=== PATIENT | male | born 1945 | race Caucasian/White ===

== ENCOUNTER 2016-09-05 20:43 | Inpatient (IN) | payer MEDICARE, OTHER ==
[~2016-09-05] VITALS: Ht 177.8 cm; Wt 64.4 kg
--- NOTE | 2016-09-05 21:20 | NUR ---
TO ROOM 5A FOR ER EVAL
[2016-09-05] MEDS ORDERED: TAMS0.4C34 (21:35)
[2016-09-05] MEDS ORDERED: ADAL40KI (21:35)
[2016-09-05] MEDS ORDERED: ENTE0.5T4 (21:35)
[2016-09-05] MEDS ORDERED: ACYC200C (21:35)
--- NOTE | 2016-09-05 22:38 | NUR ---
pt seen and examined by ermd. fed and given juice to drink.cooperative and calm.
--- NOTE | 2016-09-06 00:10 | NUR ---
no voiding yet.
--- NOTE | 2016-09-06 00:17 | NUR ---
ekg done, pt went to radiology for ct scan.
--- NOTE | 2016-09-06 00:40 | NUR ---
pt back to room , films seen by rimad, pt now medically cleared.
[2016-09-06] MEDS ORDERED: CLONAZEPAM 0.5 MG TABLET PO SCH (01:15)
[2016-09-06] MEDS ORDERED: MAG HYDROX/AL HYDROX/SIMETH 30 ML LIQUID UDC PO PRN (01:15)
[2016-09-06] MEDS ORDERED: TEMAZEPAM 7.5 MG CAPSULE PO PRN (01:15)
[2016-09-06] MEDS ORDERED: ACETAMINOPHEN 325 MG TABLET PO PRN (01:15)
[2016-09-06] MEDS ORDERED: MAGNESIUM HYDROXIDE 30 ML LIQUID UDC PO PRN (01:15)
--- NOTE | 2016-09-06 01:16 | NUR ---
report to fabiola nguyen. pt to mhu via wheelchair.
[2016-09-06 01:33] VITALS: BP 119/90
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
[2016-09-06] MEDS ORDERED: CLONAZEPAM 0.5 MG TABLET PO PRN (07:16)
[2016-09-06 07:30] VITALS: BP 128/82
[2016-09-06] MEDS: QUETIAPINE FUMARATE 25 MG TABLET PO SCH ×2 (12:35→20:00)
[2016-09-06 17:14] VITALS: BP 139/85
[2016-09-06] MEDS: MIRTAZAPINE 15 MG TABLET PO SCH (20:00)
--- NOTE | 2016-09-06 20:45 | NUR ---
PATIENT RECEIVED IN BED AWAKE. PATIENT ALERT/ORIENTED X2 WITH CONFUSION NOTED. PATIENT HAS FLAT AFFECT, ISOLATIVE WITHDRAWN REMAINS IN ROOM. PATIENT DENIES SI/AH/VH WILL CONTINUE TO MONITOR CHANGE OF BEHAVIOR. ENCOURAGED PATIENT TO EXPRESS FEELINGS AND CONCERNS, AND TO PARTICIPATE IN GROUP ACTIVITIES.PATIENT HAS POOR INSIGHT. NO AGGRESSIVE OR COMBATIVE BEHAVIOR NOTED WILL CONTINUE TO MONITOR AND REDIRECT NEEDED. PATIENT COMPLAINT WITH HS MEDICATION. PATIENT DENIES PAIN AT THIS TIME WILL CONTINUE TO MONITOR. BED IN LOWEST POSTION, BED LOCKED AND BED ALARM ON WHILE IN BED.
[2016-09-06 22:23] VITALS: BP 152/90
[2016-09-07 08:00] VITALS: BP 128/91
[2016-09-07] MEDS: QUETIAPINE FUMARATE 25 MG TABLET PO SCH ×2 (08:20→20:11)
--- NOTE | 2016-09-07 15:56 | NUR ---
Initial discharge instructions:Pt resides at home alone [[id number],[place], [place],[address];[phone]].Per pt,his girlfriend-Davy lives with him at times.Per pt,he would like to return home upon discharge.SW attempted to call pt's home,and requested a call back.CALEB will speak with pt and MD regarding appropriate discharge planning.SW will form a safe and proper discharge.
[2016-09-07 16:37] VITALS: BP 126/86
[2016-09-07 20:10] VITALS: BP 131/89
[2016-09-07] MEDS: MIRTAZAPINE 15 MG TABLET PO SCH (20:11)
[2016-09-07] MEDS: TAMSULOSIN HCL 0.4 MG CAP.SR.24H PO SCH (20:11)
--- NOTE | 2016-09-07 21:14 | NUR ---
PATIENT RECEIVED IN BED AWAKE. PATIENT ALERT/ORIENTED X2 WITH CONFUSION NOTED. PATIENT IS EASILY ANGRY. AND EASILY IRRITABLE. PATIENT HAS FLAT AFFECT, ISOLATIVE WITHDRAWN REMAINS IN ROOM. PATIENT DENIES SI/AH/VH WILL CONTINUE TO MONITOR CHANGE OF BEHAVIOR. ENCOURAGED PATIENT TO EXPRESS FEELINGS AND CONCERNS, AND TO PARTICIPATE IN GROUP ACTIVITIES.PATIENT HAS POOR INSIGHT. NO AGGRESSIVE OR COMBATIVE BEHAVIOR NOTED WILL CONTINUE TO MONITOR AND REDIRECT NEEDED. PATIENT COMPLAINT WITH HS MEDICATION. PATIENT DENIES PAIN AT THIS TIME WILL CONTINUE TO MONITOR. BED IN LOWEST POSITION, BED LOCKED AND BED ALARM ON WHILE IN BED.
[2016-09-08] MEDS: QUETIAPINE FUMARATE 25 MG TABLET PO SCH ×2 (08:21→20:21)
[2016-09-08 08:30] VITALS: BP 120/82
--- NOTE | 2016-09-08 11:16 | NUR ---
GPS: Nursing Notes: Lab. Draw Refusal: Patient refusing her lipid panel and hemoglobin A1C lab. draw today, loud and angry affect, resistant with nursing care, continue with treatment plan.
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
--- NOTE | 2016-09-08 13:34 | NUR ---
GPS: Nursing Notes: Clarification of Medications: Per Cat Cabrera SPECIALTY PLANT SUPERVISOR, trying to contact patient's , Saranya left message to call [facility], in order to get more information regarding patient's medication, continue to monitor patient, continue with treatment plan.
--- NOTE | 2016-09-08 13:38 | NUR ---
GPS: Nursing Notes: Regarding Medication Clarification: Informed Cat Cabrera SEAM STAY STITCHER that staff left message to patient's per her request in order to get more information regarding patient's medication. Also informed pharmacist Hamlet regarding staff trying to get in touch with patient in order to get more information regarding patient's medication per SEAM STAY STITCHER. PharmacistHamlet to call Cat Cabrera SEAM STAY STITCHER at extension [phone] in order to see exactly what she wants to do with his pending medication.
[2016-09-08 16:33] VITALS: BP 127/69
[2016-09-08] MEDS: TAMSULOSIN HCL 0.4 MG CAP.SR.24H PO SCH (20:22)
[2016-09-08] MEDS: MIRTAZAPINE 15 MG TABLET PO SCH (20:22)
[2016-09-09] MEDS: QUETIAPINE FUMARATE 25 MG TABLET PO SCH ×2 (08:24→20:09)
--- NOTE | 2016-09-09 11:55 | NUR ---
WEEKLY MEETING PO INTAKE 25-100% OF REGULAR DIET, IF PO INTAKE <50%, RECOMMEND BOOST ONCE BMI 19.7, NOTED 3 LBS WT LOSS IN 2 DAYS (MOST LIKELY MEASUREMENT ERROR) BM PRESENT, SKIN INTACT NO LABS AVAILABLE MEDS: REMERON , NO DNI NOTED NUTRITION DIAGNOSIS: SUBOPTIMAL PO INTAKE RELATED TO MENTAL STATUS EVIDENCED BY PO INTAKE 25-100% MONITOR PO INTAKE, WEIGHT FULL ASSESSMENT TO BE COMPLETED AT LATER DATE PER HOSPITAL POLICY Addendum: 09/09/16 at [address] Amended: Links added.
[2016-09-09 16:00] VITALS: BP 118/78
[2016-09-09] MEDS: TAMSULOSIN HCL 0.4 MG CAP.SR.24H PO SCH (20:09)
[2016-09-09] MEDS: MIRTAZAPINE 15 MG TABLET PO SCH (20:09)
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
[2016-09-10] MEDS: QUETIAPINE FUMARATE 25 MG TABLET PO SCH (08:54)
[2016-09-10 20:08] VITALS: BP 129/81
[2016-09-10] MEDS: MIRTAZAPINE 15 MG TABLET PO SCH (20:14)
[2016-09-10] MEDS: OLANZAPINE 5 MG TABLET PO SCH (20:14)
[2016-09-10] MEDS: TAMSULOSIN HCL 0.4 MG CAP.SR.24H PO SCH (20:14)
[2016-09-11 08:00] VITALS: BP 106/68
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
--- NOTE | 2016-09-11 15:21 | NUR ---
Water Plant Operator Spoke with the patient today to discuss discharge planning with him however the patient was not cooperative and very hostile. Today the patient has been yelling, screaming, demanding, slammed the door, and threw bottle at the wall because he wanted more water. When this interviewer asked the patient where he wants to go upon discharge, the patient remained laying flat on his back staring at the ceiling and would not answer. When the interviewer attempted to ask again, he stated "I want to go to [facility]." The interviewer also received a phone call from the patient's /girlfriend Saranya [ Home: ] stating that she does not want the patient to return home. She was very ambivalent and continued to state that she wants the patient to return home but that she doesn't want him to return home. Caleb spoke with Gisele at [facility] who confirmed that they will be providing transportation for the patient on 09/16/16 around 2:00 pmand take him back to his home. CALEB has called the patient's APS social media content specialist Miriam Springer and left her a voicemail informing her of the discharge plans. Addendum: 09/11/16 at 1544 by REESE ELLIS CALEB spoke with the patient's /girlfriend Saranya [ Home: ] and informed her that the patient will be discharged on Wednesday09/16/16 and she is aware and agreeable with the discharge plan. SHe is expectig the patient to return home that day. CALEB will contact Saranya and APS CALEB Pineda upon discharge to remind them of the DC plans.
[2016-09-11 16:00] VITALS: BP 129/82
[2016-09-11] MEDS: OLANZAPINE 5 MG TABLET PO SCH (20:38)
[2016-09-11] MEDS: TAMSULOSIN HCL 0.4 MG CAP.SR.24H PO SCH (20:39)
[2016-09-11] MEDS: MIRTAZAPINE 15 MG TABLET PO SCH (20:39)
[2016-09-11 21:24] VITALS: BP 153/95
[2016-09-12 20:00] VITALS: BP 120/74
[2016-09-12] MEDS: TAMSULOSIN HCL 0.4 MG CAP.SR.24H PO SCH (20:05)
[2016-09-12] MEDS: OLANZAPINE 5 MG TABLET PO SCH (20:05)
[2016-09-12] MEDS: MIRTAZAPINE 15 MG TABLET PO SCH (20:05)
--- NOTE | 2016-09-12 23:35 | NUR ---
GPS: Pt.awake at this time and unable to fall back to sleep. Quiet environment provided to facilitate sleep. Refused sleeping pill as ordered prn when offered. Will continue to monitor.
[2016-09-13 07:30] VITALS: BP 110/72
[2016-09-13] MEDS: OLANZAPINE 5 MG TABLET PO SCH ×2 (15:40→20:18)
[2016-09-13 15:41] VITALS: BP 111/70
[2016-09-13] MEDS: OLANZAPINE 2.5 MG TABLET PO SCH (15:45)
[2016-09-13 19:45] VITALS: BP 104/68
[2016-09-13] MEDS: TAMSULOSIN HCL 0.4 MG CAP.SR.24H PO SCH (20:18)
[2016-09-13] MEDS: MIRTAZAPINE 15 MG TABLET PO SCH (20:18)
[2016-09-14 07:30] VITALS: BP 105/56
[2016-09-14] MEDS: OLANZAPINE 2.5 MG TABLET PO SCH (08:27)
[2016-09-14 16:08] VITALS: BP 111/69
[2016-09-14] MEDS: TAMSULOSIN HCL 0.4 MG CAP.SR.24H PO SCH (20:13)
[2016-09-14] MEDS: MIRTAZAPINE 15 MG TABLET PO SCH (20:14)
[2016-09-14] MEDS: OLANZAPINE 5 MG TABLET PO SCH (20:15)
[2016-09-14 20:51] VITALS: BP 116/68
[2016-09-15 07:30] VITALS: BP 118/77
[2016-09-15] MEDS: OLANZAPINE 2.5 MG TABLET PO SCH (08:08)
[2016-09-15 17:02] VITALS: BP 105/66
[2016-09-15 20:00] VITALS: BP 104/66
[2016-09-15] MEDS: TAMSULOSIN HCL 0.4 MG CAP.SR.24H PO SCH (20:17)
[2016-09-15] MEDS: OLANZAPINE 5 MG TABLET PO SCH (20:19)
[2016-09-15] MEDS: MIRTAZAPINE 15 MG TABLET PO SCH (20:19)
[2016-09-16 07:30] VITALS: BP 123/71
--- NOTE | 2016-09-16 08:12 | NUR ---
DC Note: The patient will be discharged today back home [[address], [place], [address]; [phone]] via private transportation at 2:00 pm. Spoke with Gisele [facility] Liaison [phone] who stated the patient would be picked up today by the [facility]. Spoke with patients , Saranya [phone] who is aware and agreeable with discharge plans. Spoke with APS SW, Miriam [phone] who is aware and agreeable with discharge plans. Per Miriam, she will follow-up with the patient once he returns home on either 09/17/16 or Wednesday09/18/16. Miriam stated she will continue to follow-up with the patient and his , and offer additional services. Patient is aware and agreeable with discharge plans. Patient refused SNF placement, although it was offered [[facility]]. Patient was provided with a brief substance abuse intervention and was referred to [facility], [facility], and [facility]. Patient will follow-up with (Egg Factory Worker) [facility] [[address], [place] [address]; ] and was referred to [facility] [place] [facility] , [facility] , and the [facility] for mental health outpatient referrals.
[2016-09-16] MEDS: OLANZAPINE 2.5 MG TABLET PO SCH (08:31)
--- NOTE | 2016-09-16 13:03 | NUR ---
GPS/RN - Cat Del Cid NP, aware patient refused labs. patient cleared for discharge by medical and psychiatrist.
--- NOTE | 2016-09-16 14:15 | NUR ---
GPS/RN- Transportation here for patient from [facility], Josh Herrera. [phone]
--- NOTE | 2016-09-16 14:34 | NUR ---
WEEKLY MEETING: TOLERATING CURRENT DIET,(REGULAR DIET)EATING 75-100% OF MEALS SKIN INTACT, NO LABS AVAILABLE TO EVALUATE NO SIGNIFICANT WT CHANGES NOTICED ,BMI 20.4,CURRENT WT IS 142LB NO NUTRITION DIAGNOSIS AT THIS TIME NO INTERVENTION AT THIS TIME MONITOR:PO INTAKE,WT,NEW LABS Addendum: 09/16/16 at [address] Amended: Links added.
--- NOTE | 2016-09-16 15:00 | NUR ---
1345 DISCHARGE INSTRUCTIONS GIVEN TO PATIENT REGARDING MEDICATIONS TO CONTINUE AT HOME, PATIENT VERBALIZED UNDERSTANDING. PRESCRIPTIONS GIVEN AND BELONGINGS RETURNED AND SIGNED.1420 pATIENT PICKED UP BY [facility], PATIENT ALERT AND OX3, DENIES SUICIDAL IDEATION/ DENIES HOMICIDAL THOUGHTS. nO AVHALLUCINATIONS/ NO DELUSIONS NOTED. BROUGHT PATIENT TO THE PARKING ARE PER WHEEL CHAIR AND WENT HOME MENTALLY AND MEDICALLY STABLE.
== END 2016-09-16 14:20 | disposition home or self-care (01) | DRG 885 ==
LOC: ER 20:50 → GPS 09-06 00:45
PROVIDERS: ADMIT Psychiatry & Neurology Psychiatry; ATTEND Nurse Practitioner Acute Care
DX: F33.3 Major depressive disorder, recurrent, severe with psychotic symptoms (principal); R45.851 Suicidal ideations; F29 Unspecified psychosis not due to a substance or known physiological condition; E11.9 Type 2 diabetes mellitus without complications; M19.011 Primary osteoarthritis, right shoulder; M19.012 Primary osteoarthritis, left shoulder; M41.9 Scoliosis, unspecified; J43.9 Emphysema, unspecified; N28.1 Cyst of kidney, acquired; Z86.19 Personal history of other infectious and parasitic diseases; M47.9 Spondylosis, unspecified
CPT/HCPCS: 70450; 71010; 71250; 93005; A4663